=== PATIENT | female | born 1990 | race African-American/Black ===

== ENCOUNTER 2017-04-26 11:39 | Emergency (ER) | payer MEDICAID ==
[~2017-04-26] VITALS: Ht 170.2 cm; Wt 91.0 kg
[2017-04-26 11:44] VITALS: BP 131/90
== END 2017-04-26 13:54 | disposition home or self-care (01) ==
LOC: ER 11:39
DX: H01.005 Unspecified blepharitis left lower eyelid (principal); H01.004 Unspecified blepharitis left upper eyelid; F12.10 Cannabis abuse, uncomplicated
CPT/HCPCS: 99283